=== PATIENT | male | born 1960 | race Caucasian/White ===

== ENCOUNTER 2017-10-06 19:57 | Inpatient (IN) ==
[2017-10-06] MEDS ORDERED: ACETAMINOPHEN 500 MG TABLET PO STA (21:26)
[2017-10-06] MEDS ORDERED: PIPERACILLIN/TAZOBACTAM 3,375 MG in SODIUM CHLORIDE 0.9% 100 ML IV STA (21:26)
[2017-10-06] MEDS ORDERED: SODIUM CHLORIDE 0.9% 1,000 ML IV STA (21:26)
[2017-10-06 21:39] LABS: Basophils % 0.3 % (0.0-0.8); Eosinophils % 0.4 % (0.00-10.9); Hematocrit 51.2 VOL% (42.0-52.0); Immature Granulocytes % 0.4 %; Immature Granulocytes Absolute 0.04 #; Lymphocytes # 0.5 10*3/uL (1.4-4.0); Lymphocytes % 4.3 % (21.2-54.2); Mean Corpuscular HGB Conc 37.7 GM/DL (32-36); Mean Corpuscular Hemoglobin 33 PG (27-34); Mean Corpuscular Volume 87.5 FL (87-102); Mean Platelet Volume 12.7 FL (9.6-12.0); Monocytes # 0.5 10*3/uL (0.11-0.8); Monocytes % 4.9 % (1.7-12.7); Neutrophils # 9.4 10*3/uL (1.4-7.4); Neutrophils % 89.7 % (38.7-73.9); Platelet Count 95 T/CUMM (130-400); Red Blood Count 5.85 MC/CUMM (3.8-5.5); Red Cell Distribution Width 12.8 % (9.3-17.3); White Blood Count 10.5 T/CUMM (4-12)
[2017-10-06 21:40] LABS: Hemoglobin 19.3 GM/DL (14.0-18.0)
[2017-10-06 21:42] LABS: INR 1.1; PT Patient Result 11.7 SECS
[2017-10-06] MEDS ORDERED: PIPERACILLIN/TAZOBACTAM 3,375 MG VIAL IV ONE (21:54)
[2017-10-06] MEDS ORDERED: ACETAMINOPHEN 500 MG TABLET ONE (21:54)
[2017-10-06 22:00] LABS: Albumin 4.1 G/DL (3.4-5.0); Calcium 9.5 MG/DL (8.5-10.1); Lymphocytes 1 % (20-55); Osmolality,Calculated 261.5 MOS/KG (273-304); Platelet Estimate Decreased; Potassium 3.4 MMOL/L (3.5-5.1); Segmented Neutrophils 92 % (50-85); Total Cells Counted 100
[2017-10-06 22:06] LABS: Lactic Acid 1.1 MMOL/L (0.4-2.0)
[2017-10-06 22:35] LABS: Sedimentation Rate-Westergren 2 MM/HR (0-20)
[2017-10-06] MEDS ORDERED: ALBUTEROL/IPRATROPIUM 3 ML NEB RESP TX STA (22:43)
[2017-10-06 22:52] LABS: Apearance,Urine Slightly Hazy (Clear); Bacteria,Urine Occasional /HPF (Few); Bilirubin,Urine Negative (Negative); Blood, Urine Negative (Negative); Glucose,Urine (UA) Negative (Negative); Hyaline Casts,Urine 1 /LPF (0-3); Ketones,Urine 5 mg/dL (Negative); Mucus,Urine Occasional /LPF (Occasional); Nitrite,Urine Positive (Negative); Protein,Urine Negative; RBC,Urine 3 /HPF (0-4); Squamous Epithelial Cell,Urine Occasional /HPF (0-10); Urine Color Yellow (Yellow); Urine Specific Gravity 1.009 (1.001-1.035); Urine Urobilinogen < 2.0 EU/DL (0.2-1.0); WBC,Urine 15 /HPF (0-6)
[2017-10-06] MEDS ORDERED: ONDANSETRON 4 MG/2 ML VIAL IV PRN (23:08)
[2017-10-06] MEDS ORDERED: ACETAMINOPHEN 325 MG TABLET PO PRN (23:08)
[2017-10-06] MEDS ORDERED: guaiFENesin/DM ER 600-30 MG TABLET PO PRN (23:08)
[2017-10-06] MEDS ORDERED: ALBUTEROL/IPRATROPIUM 3 ML NEB RESP TX PRN (23:12)
[2017-10-07] MEDS: LEVOFLOXACIN INJ 750 MG in PREMIX 1 EACH IV SCH ×2 (01:47→23:29)
[2017-10-07] MEDS: SODIUM CHLORIDE 0.9% 1,000 ML IV SCH ×3 (01:48→21:39)
[2017-10-07] MEDS: OXYBUTYNIN XL 10 MG TABLET PO SCH ×5 (01:51→23:03)
[2017-10-07] MEDS: ACETAMINOPHEN 500 MG TABLET PO PRN (06:58)
[2017-10-07 07:13] LABS: Basophils % 0.2 % (0.0-0.8); Hematocrit 45.6 VOL% (42.0-52.0); Immature Granulocytes % 0.7 %; Immature Granulocytes Absolute 0.12 #; Lymphocytes # 0.5 10*3/uL (1.4-4.0); Lymphocytes % 2.6 % (21.2-54.2); Mean Corpuscular HGB Conc 37.7 GM/DL (32-36); Mean Corpuscular Hemoglobin 33 PG (27-34); Mean Corpuscular Volume 88.4 FL (87-102); Mean Platelet Volume 12.6 FL (9.6-12.0); Monocytes # 0.9 10*3/uL (0.11-0.8); Monocytes % 5.2 % (1.7-12.7); Neutrophils # 15.5 10*3/uL (1.4-7.4); Neutrophils % 91.3 % (38.7-73.9); Red Blood Count 5.16 MC/CUMM (3.8-5.5)
[2017-10-07 07:14] LABS: Hemoglobin 17.2 GM/DL (14.0-18.0)
[2017-10-07 07:15] LABS: Calcium 8.7 MG/DL (8.5-10.1); Osmolality,Calculated 262.5 MOS/KG (273-304); Platelet Count 78 T/CUMM (130-400)
[2017-10-07 07:20] LABS: Band Neutrophils 9 % (0-10); Hypochromasia Slight; Lymphocytes 4 % (20-55); Platelet Estimate Decreased; Segmented Neutrophils 82 % (50-85); Total Cells Counted 100
[2017-10-07] MEDS: PANTOPRAZOLE 40 MG TABLET PO SCH (08:47)
[2017-10-07] MEDS: ASCORBIC ACID 500 MG TABLET PO SCH (08:47)
[2017-10-07] MEDS: BACLOFEN 20 MG TABLET PO SCH ×4 (08:47→22:42)
[2017-10-07] MEDS: GABAPENTIN 400 MG CAPSULE PO SCH ×4 (08:47→21:28)
[2017-10-07] MEDS: DOCUSATE SODIUM 100 MG CAPSULE PO PRN (08:48)
[2017-10-07] MEDS: DIAZEPAM 5 MG TABLET PO SCH ×2 (08:48→21:28)
[2017-10-07] MEDS: ENOXAPARIN 40 MG/0.4 ML SYRINGE SUBCUT SCH (08:48)
[2017-10-08 05:00] LABS: Calcium 8.7 MG/DL (8.5-10.1); Osmolality,Calculated 271.7 MOS/KG (273-304); Potassium 3.2 MMOL/L (3.5-5.1)
[2017-10-08] MEDS: SODIUM CHLORIDE 0.9% 1,000 ML IV SCH ×3 (05:51→21:56)
[2017-10-08] MEDS: OXYBUTYNIN XL 10 MG TABLET PO SCH ×3 (05:51→18:12)
[2017-10-08 06:40] LABS: Basophils % 0.2 % (0.0-0.8); Eosinophils # 0.1 10*3/uL (0.0-0.87); Hematocrit 43.1 VOL% (42.0-52.0); Hemoglobin 15.7 GM/DL (14.0-18.0); Immature Granulocytes % 0.4 %; Immature Granulocytes Absolute 0.04 #; Lymphocytes # 0.7 10*3/uL (1.4-4.0); Lymphocytes % 6.6 % (21.2-54.2); Mean Corpuscular HGB Conc 36.4 GM/DL (32-36); Mean Corpuscular Hemoglobin 33 PG (27-34); Mean Corpuscular Volume 90.4 FL (87-102); Mean Platelet Volume 12.1 FL (9.6-12.0); Monocytes # 0.5 10*3/uL (0.11-0.8); Monocytes % 5.1 % (1.7-12.7); Neutrophils # 8.7 10*3/uL (1.4-7.4); Neutrophils % 86.7 % (38.7-73.9); Platelet Count 78 T/CUMM (130-400); Red Blood Count 4.77 MC/CUMM (3.8-5.5); Red Cell Distribution Width 13.4 % (9.3-17.3)
[2017-10-08] MEDS ORDERED: BISACODYL 5 MG TABLET PO ONE (08:19)
[2017-10-08] MEDS ORDERED: POTASSIUM CHLORIDE 20 MEQ TABLET PO ONE (08:19)
[2017-10-08 08:27] LABS: Hypochromasia 1+
[2017-10-08] MEDS: BACLOFEN 20 MG TABLET PO SCH ×5 (09:34→21:56)
[2017-10-08] MEDS: ASCORBIC ACID 500 MG TABLET PO SCH (09:34)
[2017-10-08] MEDS: DOCUSATE SODIUM 100 MG CAPSULE PO PRN (09:34)
[2017-10-08] MEDS: PANTOPRAZOLE 40 MG TABLET PO SCH (09:34)
[2017-10-08] MEDS: DIAZEPAM 5 MG TABLET PO SCH ×3 (09:34→21:56)
[2017-10-08] MEDS: GABAPENTIN 400 MG CAPSULE PO SCH ×4 (09:34→21:56)
[2017-10-08] MEDS: ENOXAPARIN 40 MG/0.4 ML SYRINGE SUBCUT SCH ×2 (09:35→09:40)
[2017-10-08] MEDS ORDERED: SODIUM PHOSPHATE ENEMA 133 ML BOTTLE RECTAL ONE (14:00)
[2017-10-08] MEDS: DESITIN 4OZ/NYSTATIN 15 GRAM MIXTURE PASTE TOP SCH (21:56)
[2017-10-08] MEDS: LEVOFLOXACIN INJ 750 MG in PREMIX 1 EACH IV SCH (22:37)
[2017-10-09] MEDS: OXYBUTYNIN XL 10 MG TABLET PO SCH ×4 (00:51→17:48)
[2017-10-09] MEDS ORDERED: SODIUM PHOSPHATE ENEMA 133 ML BOTTLE RECTAL ONE (01:30)
[2017-10-09 05:57] LABS: Basophils % 0.2 % (0.0-0.8); Eosinophils # 0.3 10*3/uL (0.0-0.87); Eosinophils % 3.5 % (0.00-10.9); Hematocrit 43.6 VOL% (42.0-52.0); Hemoglobin 15.8 GM/DL (14.0-18.0); Immature Granulocytes % 0.2 %; Immature Granulocytes Absolute 0.02 #; Lymphocytes # 0.6 10*3/uL (1.4-4.0); Mean Corpuscular HGB Conc 36.2 GM/DL (32-36); Mean Corpuscular Hemoglobin 32 PG (27-34); Mean Corpuscular Volume 89.3 FL (87-102); Monocytes # 0.6 10*3/uL (0.11-0.8); Monocytes % 6.5 % (1.7-12.7); Neutrophils % 82.6 % (38.7-73.9); Red Blood Count 4.88 MC/CUMM (3.8-5.5); Red Cell Distribution Width 13.2 % (9.3-17.3); White Blood Count 8.5 T/CUMM (4-12)
[2017-10-09 05:58] LABS: Platelet Count 82 T/CUMM (130-400)
[2017-10-09 06:19] LABS: Calcium 8.6 MG/DL (8.5-10.1); Osmolality,Calculated 278.3 MOS/KG (273-304); Potassium 3.2 MMOL/L (3.5-5.1)
[2017-10-09] MEDS: SODIUM CHLORIDE 0.9% 1,000 ML IV SCH ×3 (06:26→20:16)
[2017-10-09 07:17] LABS: Platelet Estimate Decreased
[2017-10-09] MEDS: BACLOFEN 20 MG TABLET PO SCH ×5 (09:14→21:29)
[2017-10-09] MEDS: ENOXAPARIN 40 MG/0.4 ML SYRINGE SUBCUT SCH (09:17)
[2017-10-09] MEDS: ASCORBIC ACID 500 MG TABLET PO SCH (09:17)
[2017-10-09] MEDS: PANTOPRAZOLE 40 MG TABLET PO SCH (09:17)
[2017-10-09] MEDS: GABAPENTIN 400 MG CAPSULE PO SCH ×5 (09:19→22:49)
[2017-10-09] MEDS: DIAZEPAM 5 MG TABLET PO SCH ×3 (09:19→21:29)
[2017-10-09] MEDS: DESITIN 4OZ/NYSTATIN 15 GRAM MIXTURE PASTE TOP SCH ×2 (09:20→22:49)
[2017-10-09] MEDS ORDERED: POTASSIUM CHLORIDE 20 MEQ TABLET PO ONE (14:25)
[2017-10-09] MEDS ORDERED: PHENYLEPHRINE 0.25% SUPP RECTAL ONE (16:17)
[2017-10-09] MEDS: ACETAMINOPHEN 500 MG TABLET PO PRN (21:29)
[2017-10-09] MEDS: LEVOFLOXACIN INJ 750 MG in PREMIX 1 EACH IV SCH (22:49)
[2017-10-10] MEDS: OXYBUTYNIN XL 10 MG TABLET PO SCH ×3 (00:17→14:19)
[2017-10-10] MEDS: SODIUM CHLORIDE 0.9% 1,000 ML IV SCH (01:30)
[2017-10-10 07:25] LABS: Calcium 8.7 MG/DL (8.5-10.1); Osmolality,Calculated 281.1 MOS/KG (273-304); Potassium 3.8 MMOL/L (3.5-5.1)
[2017-10-10] MEDS: DIAZEPAM 5 MG TABLET PO SCH (08:21)
[2017-10-10] MEDS: PANTOPRAZOLE 40 MG TABLET PO SCH (08:21)
[2017-10-10] MEDS: ASCORBIC ACID 500 MG TABLET PO SCH (08:21)
[2017-10-10] MEDS: DESITIN 4OZ/NYSTATIN 15 GRAM MIXTURE PASTE TOP SCH (08:21)
[2017-10-10] MEDS: BACLOFEN 20 MG TABLET PO SCH ×2 (08:21→14:19)
[2017-10-10] MEDS: ENOXAPARIN 40 MG/0.4 ML SYRINGE SUBCUT SCH (08:23)
[2017-10-10] MEDS: GABAPENTIN 400 MG CAPSULE PO SCH (11:18)
[2017-10-10 11:58] VITALS: BP 156/86
== END 2017-10-10 14:01 | disposition home health service (06) | DRG 194 ==
LOC: EDUNIT# → EDBD → N.ED 19:57 → N.EDINP 23:08 → N.5E 23:33
PROVIDERS: ADMIT Internal Medicine Geriatric Medicine; ATTEND Internal Medicine Geriatric Medicine

== ENCOUNTER 2017-10-13 18:22 | Inpatient (IN) ==
[2017-10-13 19:35] LABS: VBG Base Excess 5.2 MEQ/L (0-4); VBG HCO3 29.1 MEQ/L (24-28); VBG PH 7.451
[2017-10-13 19:59] LABS: Albumin 3.5 G/DL (3.4-5.0); Bilirubin,Total 1.4 MG/DL (0.2-1.0); Calcium 8.8 MG/DL (8.5-10.1); Osmolality,Calculated 262.5 MOS/KG (273-304); Potassium 3.6 MMOL/L (3.5-5.1); Total Protein 6.6 G/DL (6.4-8.3)
[2017-10-13 20:03] LABS: Apearance,Urine CLEAR (Clear); Bacteria,Urine Occasional /HPF (Few); Bilirubin,Urine Negative (Negative); Blood, Urine Small mg/dL (Negative); Glucose,Urine (UA) Negative (Negative); Ketones,Urine Negative (Negative); Nitrite,Urine Positive (Negative); Protein,Urine Negative; RBC,Urine <1 /HPF (0-4); Squamous Epithelial Cell,Urine Occasional /HPF (0-10); Urine Color Straw (Yellow); Urine Specific Gravity 1.003 (1.001-1.035); Urine Urobilinogen < 2.0 EU/DL (0.2-1.0); WBC,Urine 1 /HPF (0-6)
[2017-10-13 20:25] LABS: Basophils # 0.1 10*3/uL (0.0-0.2); Basophils % 0.3 % (0.0-0.8); Eosinophils % 0.1 % (0.00-10.9); Hematocrit 46.6 VOL% (42.0-52.0); Hemoglobin 16.9 GM/DL (14.0-18.0); Immature Granulocytes % 0.3 %; Immature Granulocytes Absolute 0.05 #; Lymphocytes # 0.8 10*3/uL (1.4-4.0); Lymphocytes % 5.1 % (21.2-54.2); Mean Corpuscular HGB Conc 36.3 GM/DL (32-36); Mean Corpuscular Hemoglobin 32 PG (27-34); Mean Corpuscular Volume 88.8 FL (87-102); Mean Platelet Volume 12.2 FL (9.6-12.0); Monocytes # 1.2 10*3/uL (0.11-0.8); Monocytes % 7.9 % (1.7-12.7); Neutrophils # 12.9 10*3/uL (1.4-7.4); Neutrophils % 86.3 % (38.7-73.9); Platelet Count 106 T/CUMM (130-400); Red Blood Count 5.25 MC/CUMM (3.8-5.5); Red Cell Distribution Width 13.1 % (9.3-17.3)
[2017-10-13] MEDS ORDERED: ONDANSETRON 4 MG/2 ML VIAL ONE (21:49)
[2017-10-13] MEDS ORDERED: ONDANSETRON 4 MG/2 ML VIAL IV STA ×2 (21:49→21:52)
[2017-10-13] MEDS ORDERED: ONDANSETRON 4 MG/2 ML VIAL IV PRN (22:52)
[2017-10-13] MEDS ORDERED: cefTRIAXone 1,000 MG in SYRINGE 1 EACH IV SCH (23:00)
[2017-10-13] MEDS ORDERED: AZITHROMYCIN INJ 500 MG in SODIUM CHLORIDE 0.9% 250 ML IV SCH (23:45)
[2017-10-14] MEDS: ENOXAPARIN 40 MG/0.4 ML SYRINGE SUBCUT SCH ×2 (01:14→22:04)
[2017-10-14] MEDS: guaiFENesin/DM ER 600-30 MG TABLET PO SCH ×2 (01:16→09:16)
[2017-10-14] MEDS: METHENAMINE HIPPURATE 1 GM TABLET PO SCH ×4 (01:16→21:55)
[2017-10-14] MEDS: DIAZEPAM 5 MG TABLET PO SCH ×4 (01:29→23:45)
[2017-10-14] MEDS: DOCUSATE SODIUM 100 MG CAPSULE PO SCH ×3 (01:29→21:56)
[2017-10-14] MEDS: OXYBUTYNIN XL 10 MG TABLET PO SCH ×5 (01:36→23:45)
[2017-10-14] MEDS: SODIUM PHOSPHATE ENEMA 133 ML BOTTLE RECTAL PRN (02:13)
[2017-10-14] MEDS: ACETAMINOPHEN 325 MG TABLET PO PRN (06:11)
[2017-10-14 06:21] LABS: Basophils # 0.1 10*3/uL (0.0-0.2); Basophils % 0.4 % (0.0-0.8); Hematocrit 45.5 VOL% (42.0-52.0); Hemoglobin 16.7 GM/DL (14.0-18.0); Immature Granulocytes % 0.3 %; Immature Granulocytes Absolute 0.05 #; Lymphocytes # 0.5 10*3/uL (1.4-4.0); Mean Corpuscular HGB Conc 36.7 GM/DL (32-36); Mean Corpuscular Hemoglobin 32 PG (27-34); Mean Corpuscular Volume 87.8 FL (87-102); Mean Platelet Volume 11.5 FL (9.6-12.0); Monocytes # 0.8 10*3/uL (0.11-0.8); Neutrophils # 14.1 10*3/uL (1.4-7.4); Neutrophils % 91.3 % (38.7-73.9); Platelet Count 105 T/CUMM (130-400); Red Blood Count 5.18 MC/CUMM (3.8-5.5); White Blood Count 15.4 T/CUMM (4-12)
[2017-10-14 06:44] LABS: Band Neutrophils 30 % (0-10); Segmented Neutrophils 64 % (50-85); Total Cells Counted 100
[2017-10-14 06:58] LABS: Calcium 8.8 MG/DL (8.5-10.1); Osmolality,Calculated 261.7 MOS/KG (273-304); Potassium 3.4 MMOL/L (3.5-5.1)
[2017-10-14] MEDS: PANTOPRAZOLE 40 MG TABLET PO SCH (09:16)
[2017-10-14] MEDS: ASCORBIC ACID 500 MG TABLET PO SCH (09:16)
[2017-10-14] MEDS ORDERED: ALBUTEROL/IPRATROPIUM 3 ML NEB RESP TX SCH (11:00)
[2017-10-14] MEDS ORDERED: CEFEPIME 2,000 MG in SYRINGE 1 EACH IV SCH (11:00)
[2017-10-14] MEDS ORDERED: AMINOPHYLLINE 250 MG in SODIUM CHLORIDE 0.9% 100 ML IV ONE (12:30)
[2017-10-14] MEDS: ALBUTEROL/IPRATROPIUM 3 ML NEB RESP TX SCH ×2 (13:55→19:46)
[2017-10-14] MEDS: DORNASE ALFA 2.5 MG/2.5 ML VIAL RESP TX SCH ×2 (14:01→20:00)
[2017-10-14] MEDS: MONTELUKAST 10 MG TABLET PO SCH (14:31)
[2017-10-14] MEDS: MEROPENEM 1,000 MG in SYRINGE 1 EACH IV SCH ×2 (14:32→22:05)
[2017-10-14] MEDS ORDERED: POTASSIUM CHLORIDE 20 MEQ TABLET PO ONE (15:42)
[2017-10-14] MEDS: FUROSEMIDE 20 MG/2 ML VIAL IV SCH (16:58)
[2017-10-14] MEDS ORDERED: cefTAZidime 1,000 MG in SYRINGE 1 EACH IV SCH (17:00)
[2017-10-14] MEDS: GABAPENTIN 400 MG CAPSULE PO SCH ×2 (17:26→21:53)
[2017-10-14] MEDS: BACLOFEN 20 MG TABLET PO SCH ×2 (17:26→21:56)
[2017-10-14] MEDS ORDERED: FLUCONAZOLE 150 MG TABLET PO ONE (18:00)
[2017-10-14] MEDS: NYSTATIN 500,000 UNIT/5 ML UDCUP SWISH/SWAL SCH (21:58)
[2017-10-14] MEDS: VANCOMYCIN INJ 1,000 MG in SODIUM CHLORIDE 0.9% 250 ML IV SCH (22:11)
[2017-10-14] MEDS ORDERED: BACLOFEN 20 MG TABLET PO SCH (23:00)
[2017-10-14] MEDS: AMINOPHYLLINE 500 MG in SODIUM CHLORIDE 0.9% 480 ML IV SCH (23:40)
[2017-10-15] MEDS: ACETAMINOPHEN 325 MG TABLET PO PRN (00:05)
[2017-10-15] MEDS: ALBUTEROL/IPRATROPIUM 3 ML NEB RESP TX SCH ×4 (02:02→19:17)
[2017-10-15] MEDS: OXYBUTYNIN XL 10 MG TABLET PO SCH ×3 (06:13→17:35)
[2017-10-15] MEDS: MEROPENEM 1,000 MG in SYRINGE 1 EACH IV SCH ×3 (06:15→22:10)
[2017-10-15] MEDS: DORNASE ALFA 2.5 MG/2.5 ML VIAL RESP TX SCH ×2 (07:20→19:17)
[2017-10-15] MEDS: ASCORBIC ACID 500 MG TABLET PO SCH (10:04)
[2017-10-15] MEDS: DOCUSATE SODIUM 100 MG CAPSULE PO SCH ×2 (10:04→20:54)
[2017-10-15] MEDS: PANTOPRAZOLE 40 MG TABLET PO SCH (10:04)
[2017-10-15] MEDS: POTASSIUM CHLORIDE 20 MEQ TABLET PO SCH (10:04)
[2017-10-15] MEDS: GABAPENTIN 400 MG CAPSULE PO SCH ×4 (10:05→21:00)
[2017-10-15] MEDS: NYSTATIN 500,000 UNIT/5 ML UDCUP SWISH/SWAL SCH ×4 (10:05→20:55)
[2017-10-15] MEDS: BACLOFEN 20 MG TABLET PO SCH ×4 (10:06→20:54)
[2017-10-15] MEDS: METHENAMINE HIPPURATE 1 GM TABLET PO SCH ×2 (10:07→20:54)
[2017-10-15] MEDS: VANCOMYCIN INJ 1,000 MG in SODIUM CHLORIDE 0.9% 250 ML IV SCH ×2 (10:07→18:02)
[2017-10-15] MEDS: MONTELUKAST 10 MG TABLET PO SCH (10:07)
[2017-10-15] MEDS: DIAZEPAM 5 MG TABLET PO SCH ×2 (10:07→20:59)
[2017-10-15] MEDS: FUROSEMIDE 20 MG/2 ML VIAL IV SCH ×2 (10:08→16:12)
[2017-10-15] MEDS: ENOXAPARIN 40 MG/0.4 ML SYRINGE SUBCUT SCH (21:00)
[2017-10-15] MEDS ORDERED: AZITHROMYCIN 250 MG TABLET PO SCH (21:00)
[2017-10-16] MEDS: ALBUTEROL/IPRATROPIUM 3 ML NEB RESP TX SCH ×4 (00:32→20:57)
[2017-10-16] MEDS: ALBUTEROL/IPRATROPIUM 3 ML NEB RESP TX PRN ×2 (03:57→16:46)
[2017-10-16] MEDS: MEROPENEM 1,000 MG in SYRINGE 1 EACH IV SCH ×3 (06:15→20:58)
[2017-10-16] MEDS: OXYBUTYNIN XL 10 MG TABLET PO SCH ×4 (06:32→17:17)
[2017-10-16] MEDS: VANCOMYCIN INJ 1,000 MG in SODIUM CHLORIDE 0.9% 250 ML IV SCH ×2 (06:32→18:12)
[2017-10-16 06:51] LABS: Basophils % 0.2 % (0.0-0.8); Eosinophils % 0.3 % (0.00-10.9); Hematocrit 42.3 VOL% (42.0-52.0); Hemoglobin 15.2 GM/DL (14.0-18.0); Immature Granulocytes % 0.4 %; Immature Granulocytes Absolute 0.04 #; Lymphocytes # 0.7 10*3/uL (1.4-4.0); Lymphocytes % 6.8 % (21.2-54.2); Mean Corpuscular HGB Conc 35.9 GM/DL (32-36); Mean Corpuscular Hemoglobin 32 PG (27-34); Mean Corpuscular Volume 88.3 FL (87-102); Monocytes # 0.5 10*3/uL (0.11-0.8); Monocytes % 5.4 % (1.7-12.7); Neutrophils # 8.6 10*3/uL (1.4-7.4); Neutrophils % 86.9 % (38.7-73.9); Platelet Count 137 T/CUMM (130-400); Red Blood Count 4.79 MC/CUMM (3.8-5.5); Red Cell Distribution Width 12.8 % (9.3-17.3); White Blood Count 9.9 T/CUMM (4-12)
[2017-10-16 07:28] LABS: Calcium 8.6 MG/DL (8.5-10.1); Osmolality,Calculated 269.1 MOS/KG (273-304); Potassium 3.2 MMOL/L (3.5-5.1)
[2017-10-16] MEDS: DORNASE ALFA 2.5 MG/2.5 ML VIAL RESP TX SCH ×2 (07:53→20:58)
[2017-10-16] MEDS ORDERED: FUROSEMIDE 20 MG/2 ML VIAL IV SCH (09:00)
[2017-10-16] MEDS: GABAPENTIN 400 MG CAPSULE PO SCH ×4 (10:41→20:47)
[2017-10-16] MEDS: DOCUSATE SODIUM 100 MG CAPSULE PO SCH ×2 (10:41→20:47)
[2017-10-16] MEDS: ASCORBIC ACID 500 MG TABLET PO SCH (10:41)
[2017-10-16] MEDS: PANTOPRAZOLE 40 MG TABLET PO SCH (10:41)
[2017-10-16] MEDS: METHENAMINE HIPPURATE 1 GM TABLET PO SCH ×2 (10:41→20:47)
[2017-10-16] MEDS: POTASSIUM CHLORIDE 20 MEQ TABLET PO SCH (10:42)
[2017-10-16] MEDS: AMINOPHYLLINE 500 MG in SODIUM CHLORIDE 0.9% 480 ML IV SCH ×2 (10:42→17:25)
[2017-10-16] MEDS: DIAZEPAM 5 MG TABLET PO SCH ×2 (10:42→20:47)
[2017-10-16] MEDS: NYSTATIN 500,000 UNIT/5 ML UDCUP SWISH/SWAL SCH ×4 (10:42→20:47)
[2017-10-16] MEDS: MONTELUKAST 10 MG TABLET PO SCH (10:42)
[2017-10-16] MEDS: BACLOFEN 20 MG TABLET PO SCH ×4 (10:42→20:47)
[2017-10-16] MEDS ORDERED: BISACODYL 5 MG TABLET PO ONE (12:08)
[2017-10-16] MEDS ORDERED: POTASSIUM CHLORIDE 20 MEQ TABLET PO ONE (12:11)
[2017-10-16] MEDS: methylPREDNISolone SOD SUC 40 MG/1 ML VIAL IV SCH ×2 (12:27→20:55)
[2017-10-16 13:16] LABS: Procalcitonin, S 0.28 ng/mL (<=0.15)
[2017-10-17] MEDS: OXYBUTYNIN XL 10 MG TABLET PO SCH ×4 (00:28→17:34)
[2017-10-17] MEDS: ENOXAPARIN 40 MG/0.4 ML SYRINGE SUBCUT SCH ×3 (00:29→22:08)
[2017-10-17] MEDS: ALBUTEROL/IPRATROPIUM 3 ML NEB RESP TX SCH ×4 (01:05→19:59)
[2017-10-17] MEDS: SODIUM PHOSPHATE ENEMA 133 ML BOTTLE RECTAL PRN (01:17)
[2017-10-17] MEDS ORDERED: ALBUTEROL/IPRATROPIUM 3 ML NEB RESP TX ONE (03:15)
[2017-10-17 05:18] LABS: Calcium 8.7 MG/DL (8.5-10.1); Osmolality,Calculated 270.1 MOS/KG (273-304); Potassium 3.8 MMOL/L (3.5-5.1)
[2017-10-17 06:15] LABS: Basophils % 0.3 % (0.0-0.8); Hematocrit 41.4 VOL% (42.0-52.0); Hemoglobin 14.8 GM/DL (14.0-18.0); Immature Granulocytes % 1.2 %; Immature Granulocytes Absolute 0.09 #; Lymphocytes # 0.3 10*3/uL (1.4-4.0); Lymphocytes % 4.1 % (21.2-54.2); Mean Corpuscular HGB Conc 35.7 GM/DL (32-36); Mean Corpuscular Hemoglobin 32 PG (27-34); Mean Platelet Volume 11.6 FL (9.6-12.0); Monocytes # 0.1 10*3/uL (0.11-0.8); Monocytes % 1.8 % (1.7-12.7); Neutrophils # 6.8 10*3/uL (1.4-7.4); Neutrophils % 92.6 % (38.7-73.9); Platelet Count 139 T/CUMM (130-400); Red Cell Distribution Width 12.9 % (9.3-17.3); White Blood Count 7.3 T/CUMM (4-12)
[2017-10-17] MEDS: ACETAMINOPHEN 325 MG TABLET PO PRN ×2 (06:20→16:20)
[2017-10-17] MEDS: MEROPENEM 1,000 MG in SYRINGE 1 EACH IV SCH ×3 (06:30→21:39)
[2017-10-17] MEDS: methylPREDNISolone SOD SUC 40 MG/1 ML VIAL IV SCH ×3 (06:35→21:39)
[2017-10-17] MEDS: DORNASE ALFA 2.5 MG/2.5 ML VIAL RESP TX SCH ×2 (07:10→19:59)
[2017-10-17 07:37] LABS: Band Neutrophils 2 % (0-10); Hypochromasia 2+; Lymphocytes 6 % (20-55); Microcytosis 1+; Platelet Estimate Decreased; Segmented Neutrophils 89 % (50-85); Total Cells Counted 100
[2017-10-17] MEDS: ASCORBIC ACID 500 MG TABLET PO SCH (09:55)
[2017-10-17] MEDS: BACLOFEN 20 MG TABLET PO SCH ×4 (09:55→21:40)
[2017-10-17] MEDS: NYSTATIN 500,000 UNIT/5 ML UDCUP SWISH/SWAL SCH ×4 (09:55→21:40)
[2017-10-17] MEDS: DOCUSATE SODIUM 100 MG CAPSULE PO SCH ×2 (09:55→21:40)
[2017-10-17] MEDS: GABAPENTIN 400 MG CAPSULE PO SCH ×4 (09:56→21:40)
[2017-10-17] MEDS: MONTELUKAST 10 MG TABLET PO SCH (09:56)
[2017-10-17] MEDS: DIAZEPAM 5 MG TABLET PO SCH ×2 (09:57→21:40)
[2017-10-17] MEDS: METHENAMINE HIPPURATE 1 GM TABLET PO SCH ×2 (09:57→21:40)
[2017-10-17] MEDS: POTASSIUM CHLORIDE 20 MEQ TABLET PO SCH (09:57)
[2017-10-17] MEDS: PANTOPRAZOLE 40 MG TABLET PO SCH (09:57)
[2017-10-17] MEDS: VANCOMYCIN INJ 1,000 MG in SODIUM CHLORIDE 0.9% 250 ML IV SCH (11:17)
[2017-10-17] MEDS: VANCOMYCIN INJ 1,000 MG in SODIUM CHLORIDE 0.45% 250 ML IV SCH (21:39)
[2017-10-17] MEDS: AMINOPHYLLINE 500 MG in SODIUM CHLORIDE 0.9% 480 ML IV SCH (21:41)
[2017-10-18] MEDS: DIAZEPAM 5 MG TABLET PO SCH ×3 (00:45→21:20)
[2017-10-18] MEDS: ALBUTEROL/IPRATROPIUM 3 ML NEB RESP TX SCH ×4 (01:04→20:25)
[2017-10-18] MEDS: AMINOPHYLLINE 500 MG in SODIUM CHLORIDE 0.9% 480 ML IV SCH ×2 (01:34→08:52)
[2017-10-18] MEDS: OXYBUTYNIN XL 10 MG TABLET PO SCH ×4 (01:36→17:34)
[2017-10-18] MEDS: VANCOMYCIN INJ 1,000 MG in SODIUM CHLORIDE 0.45% 250 ML IV SCH ×2 (04:30→12:13)
[2017-10-18] MEDS: methylPREDNISolone SOD SUC 40 MG/1 ML VIAL IV SCH ×3 (04:32→21:20)
[2017-10-18] MEDS: MEROPENEM 1,000 MG in SYRINGE 1 EACH IV SCH ×3 (04:35→21:38)
[2017-10-18 07:03] LABS: Basophils % 0.3 % (0.0-0.8); Hematocrit 42.1 VOL% (42.0-52.0); Hemoglobin 14.9 GM/DL (14.0-18.0); Immature Granulocytes % 1.8 %; Immature Granulocytes Absolute 0.21 #; Lymphocytes # 0.6 10*3/uL (1.4-4.0); Lymphocytes % 5.4 % (21.2-54.2); Mean Corpuscular HGB Conc 35.4 GM/DL (32-36); Mean Corpuscular Hemoglobin 32 PG (27-34); Mean Corpuscular Volume 90.5 FL (87-102); Mean Platelet Volume 11.5 FL (9.6-12.0); Monocytes # 0.7 10*3/uL (0.11-0.8); Monocytes % 5.8 % (1.7-12.7); Neutrophils # 10.2 10*3/uL (1.4-7.4); Neutrophils % 86.7 % (38.7-73.9); Platelet Count 156 T/CUMM (130-400); Red Blood Count 4.65 MC/CUMM (3.8-5.5); Red Cell Distribution Width 12.8 % (9.3-17.3); White Blood Count 11.8 T/CUMM (4-12)
[2017-10-18 07:35] LABS: Calcium 8.8 MG/DL (8.5-10.1); Osmolality,Calculated 268.2 MOS/KG (273-304); Potassium 4.1 MMOL/L (3.5-5.1)
[2017-10-18] MEDS: DORNASE ALFA 2.5 MG/2.5 ML VIAL RESP TX SCH ×2 (07:46→20:25)
[2017-10-18 07:52] LABS: Albumin 3.1 G/DL (3.4-5.0); Bilirubin,Total 0.8 MG/DL (0.2-1.0); Calcium 8.9 MG/DL (8.5-10.1); Osmolality,Calculated 271.1 MOS/KG (273-304); Potassium 4.1 MMOL/L (3.5-5.1); Total Protein 6.1 G/DL (6.4-8.3)
[2017-10-18] MEDS: NYSTATIN 500,000 UNIT/5 ML UDCUP SWISH/SWAL SCH ×3 (08:53→17:34)
[2017-10-18] MEDS: PANTOPRAZOLE 40 MG TABLET PO SCH (08:54)
[2017-10-18] MEDS: DOCUSATE SODIUM 100 MG CAPSULE PO SCH ×2 (08:54→21:20)
[2017-10-18] MEDS: METHENAMINE HIPPURATE 1 GM TABLET PO SCH ×2 (08:54→21:19)
[2017-10-18] MEDS: GABAPENTIN 400 MG CAPSULE PO SCH ×4 (08:54→21:19)
[2017-10-18] MEDS: POTASSIUM CHLORIDE 20 MEQ TABLET PO SCH (08:54)
[2017-10-18] MEDS: MONTELUKAST 10 MG TABLET PO SCH (08:54)
[2017-10-18] MEDS: ASCORBIC ACID 500 MG TABLET PO SCH (08:54)
[2017-10-18] MEDS: BACLOFEN 20 MG TABLET PO SCH ×4 (08:55→21:19)
[2017-10-18] MEDS ORDERED: BISACODYL 5 MG TABLET PO PRN (11:55)
[2017-10-18] MEDS: THEOPHYLLINE ER 300 MG TABLET PO SCH (13:27)
[2017-10-18] MEDS: ENOXAPARIN 40 MG/0.4 ML SYRINGE SUBCUT SCH (21:22)
[2017-10-19] MEDS: VANCOMYCIN INJ 1,000 MG in SODIUM CHLORIDE 0.45% 250 ML IV SCH ×2 (00:42→11:38)
[2017-10-19] MEDS: NYSTATIN 500,000 UNIT/5 ML UDCUP SWISH/SWAL SCH ×2 (00:42→09:16)
[2017-10-19] MEDS: OXYBUTYNIN XL 10 MG TABLET PO SCH ×2 (00:43→07:38)
[2017-10-19] MEDS: SODIUM PHOSPHATE ENEMA 133 ML BOTTLE RECTAL PRN (01:23)
[2017-10-19] MEDS: ALBUTEROL/IPRATROPIUM 3 ML NEB RESP TX SCH ×2 (03:36→07:50)
[2017-10-19] MEDS: methylPREDNISolone SOD SUC 40 MG/1 ML VIAL IV SCH (05:03)
[2017-10-19] MEDS: MEROPENEM 1,000 MG in SYRINGE 1 EACH IV SCH (05:07)
[2017-10-19] MEDS: DORNASE ALFA 2.5 MG/2.5 ML VIAL RESP TX SCH (07:55)
[2017-10-19] MEDS: THEOPHYLLINE ER 300 MG TABLET PO SCH (09:16)
[2017-10-19] MEDS: METHENAMINE HIPPURATE 1 GM TABLET PO SCH (09:16)
[2017-10-19] MEDS: BACLOFEN 20 MG TABLET PO SCH (09:16)
[2017-10-19] MEDS: GABAPENTIN 400 MG CAPSULE PO SCH (09:17)
[2017-10-19] MEDS: POTASSIUM CHLORIDE 20 MEQ TABLET PO SCH (09:17)
[2017-10-19] MEDS: ASCORBIC ACID 500 MG TABLET PO SCH (09:17)
[2017-10-19] MEDS: DIAZEPAM 5 MG TABLET PO SCH (09:17)
[2017-10-19] MEDS: PANTOPRAZOLE 40 MG TABLET PO SCH (09:17)
[2017-10-19] MEDS: MONTELUKAST 10 MG TABLET PO SCH (09:17)
[2017-10-19 09:44] LABS: Calcium 9.4 MG/DL (8.5-10.1); Potassium 3.7 MMOL/L (3.5-5.1)
[2017-10-19] MEDS: DOCUSATE SODIUM 100 MG CAPSULE PO SCH (11:05)
[2017-10-19 11:49] VITALS: BP 157/94
== END 2017-10-19 12:46 | disposition home health service (06) | DRG 193 ==
LOC: EDUNIT# → EDBD → N.ED 18:22 → SUATTDRO 22:48 → N.EDINP 22:48 → N.2E 23:32
PROVIDERS: ADMIT Internal Medicine; ATTEND Internal Medicine

== ENCOUNTER 2018-08-20 15:45 | Inpatient (IN) ==
[2018-08-20 17:00] LABS: Apearance,Urine CLOUDY (Clear); Bacteria,Urine Moderate /HPF (Few); Bilirubin,Urine Negative (Negative); Blood, Urine Small mg/dL (Negative); Glucose,Urine (UA) Negative (Negative); Hyaline Casts,Urine 49 /LPF (0-3); Ketones,Urine Negative (Negative); Mucus,Urine Occasional /LPF (Occasional); Nitrite,Urine Negative (Negative); Protein,Urine >=500 MG/DL; RBC,Urine 7 /HPF (0-4); Squamous Epithelial Cell,Urine Occasional /HPF (0-10); Urine Color Amber (Yellow); Urine Specific Gravity 1.013 (1.001-1.035); WBC,Urine 35 /HPF (0-6)
[2018-08-20] MEDS ORDERED: ONDANSETRON 4 MG/2 ML VIAL ONE (17:05)
[2018-08-20 17:52] LABS: Basophils % 0.4 % (0.0-0.8); Eosinophils # 0.1 10*3/uL (0.0-0.87); Eosinophils % 1.1 % (0.00-10.9); Hematocrit 47.9 VOL% (42.0-52.0); Hemoglobin 16.8 GM/DL (14.0-18.0); Immature Granulocytes % 0.4 %; Immature Granulocytes Absolute 0.03 #; Lymphocytes # 0.6 10*3/uL (1.4-4.0); Lymphocytes % 7.1 % (21.2-54.2); Mean Corpuscular HGB Conc 35.1 GM/DL (32-36); Mean Corpuscular Hemoglobin 30 PG (27-34); Mean Corpuscular Volume 86.6 FL (87-102); Mean Platelet Volume 12.4 FL (9.6-12.0); Monocytes # 0.6 10*3/uL (0.11-0.8); Monocytes % 7.6 % (1.7-12.7); Neutrophils # 6.7 10*3/uL (1.4-7.4); Neutrophils % 83.4 % (38.7-73.9); Platelet Count 111 T/CUMM (130-400); Red Blood Count 5.53 MC/CUMM (3.8-5.5); Red Cell Distribution Width 13.2 % (9.3-17.3)
[2018-08-20] MEDS ORDERED: ONDANSETRON 4 MG/2 ML VIAL IV STA (18:04)
[2018-08-20 18:08] LABS: Albumin 3.8 G/DL (3.4-5.0); Bilirubin,Total 0.6 MG/DL (0.2-1.0); Calcium 8.8 MG/DL (8.5-10.1); Osmolality,Calculated 266.2 MOS/KG (273-304); Potassium 2.9 MMOL/L (3.5-5.1); Total Protein 7.3 G/DL (6.4-8.3)
[2018-08-20 18:10] LABS: Lactic Acid 0.8 MMOL/L (0.4-2.0)
[2018-08-20] MEDS: cefTAZidime 2,000 MG in SYRINGE 1 EACH IV SCH (18:58)
[2018-08-20] MEDS ORDERED: ACETAMINOPHEN 325 MG TABLET PO PRN (20:36)
[2018-08-20] MEDS: POTASSIUM CHLORIDE 20 MEQ TABLET PO SCH (20:36)
[2018-08-20] MEDS: METHENAMINE HIPPURATE 1 GM TABLET PO SCH (21:35)
[2018-08-20] MEDS: DIAZEPAM 5 MG TABLET PO SCH (21:36)
[2018-08-20] MEDS: ENOXAPARIN 40 MG/0.4 ML SYRINGE SUBCUT SCH (21:37)
[2018-08-20] MEDS: OXYBUTYNIN XL 10 MG TABLET PO SCH (21:37)
[2018-08-20] MEDS: BACLOFEN 10 MG TABLET PO SCH (21:38)
[2018-08-20] MEDS: GABAPENTIN 400 MG CAPSULE PO SCH (21:38)
[2018-08-20] MEDS: SODIUM CHLORIDE 0.9% 1,000 ML IV SCH (21:39)
[2018-08-20] MEDS: GENTAMICIN INJ 120 MG in PREMIX 1 EACH IV SCH (21:39)
[2018-08-20] MEDS: DOCUSATE SODIUM 100 MG CAPSULE PO SCH (21:39)
[2018-08-21] MEDS: POTASSIUM CHLORIDE 20 MEQ TABLET PO SCH ×3 (00:48→08:39)
[2018-08-21] MEDS: cefTAZidime 2,000 MG in SYRINGE 1 EACH IV SCH ×3 (04:14→17:59)
[2018-08-21] MEDS: ONDANSETRON 4 MG/2 ML VIAL IV PRN ×2 (05:37→14:30)
[2018-08-21 06:19] LABS: Basophils % 0.5 % (0.0-0.8); Eosinophils # 0.2 10*3/uL (0.0-0.87); Eosinophils % 3.4 % (0.00-10.9); Hematocrit 45.1 VOL% (42.0-52.0); Immature Granulocytes % 0.3 %; Immature Granulocytes Absolute 0.02 #; Lymphocytes # 0.5 10*3/uL (1.4-4.0); Lymphocytes % 8.5 % (21.2-54.2); Mean Corpuscular HGB Conc 35.5 GM/DL (32-36); Mean Corpuscular Hemoglobin 31 PG (27-34); Mean Corpuscular Volume 87.4 FL (87-102); Mean Platelet Volume 12.7 FL (9.6-12.0); Monocytes # 0.7 10*3/uL (0.11-0.8); Monocytes % 10.9 % (1.7-12.7); Neutrophils # 4.7 10*3/uL (1.4-7.4); Neutrophils % 76.4 % (38.7-73.9); Platelet Count 78 T/CUMM (130-400); Red Blood Count 5.16 MC/CUMM (3.8-5.5); Red Cell Distribution Width 13.4 % (9.3-17.3); White Blood Count 6.1 T/CUMM (4-12)
[2018-08-21] MEDS: SODIUM CHLORIDE 0.9% 1,000 ML IV SCH ×3 (06:21→23:43)
[2018-08-21 06:51] LABS: Calcium 8.2 MG/DL (8.5-10.1); Osmolality,Calculated 272.7 MOS/KG (273-304); Potassium 3.3 MMOL/L (3.5-5.1)
[2018-08-21 07:03] LABS: Risk Ratio 3.22
[2018-08-21 07:43] LABS: Eosinophils 5 % (0-10); Lymphocytes 15 % (20-55); Platelet Estimate Decreased; Segmented Neutrophils 78 % (50-85); Total Cells Counted 100
[2018-08-21] MEDS: ASCORBIC ACID 500 MG TABLET PO SCH (08:38)
[2018-08-21] MEDS: METHENAMINE HIPPURATE 1 GM TABLET PO SCH (08:38)
[2018-08-21] MEDS: DIAZEPAM 5 MG TABLET PO SCH (08:39)
[2018-08-21] MEDS: GABAPENTIN 400 MG CAPSULE PO SCH ×2 (08:39→22:03)
[2018-08-21] MEDS: PANTOPRAZOLE 40 MG TABLET PO SCH (08:39)
[2018-08-21] MEDS: DOCUSATE SODIUM 100 MG CAPSULE PO SCH ×2 (08:39→22:03)
[2018-08-21] MEDS: BACLOFEN 10 MG TABLET PO SCH ×3 (08:39→20:51)
[2018-08-21] MEDS: OXYBUTYNIN XL 10 MG TABLET PO SCH ×3 (08:39→20:51)
[2018-08-21] MEDS: GENTAMICIN INJ 120 MG in PREMIX 1 EACH IV SCH ×2 (08:40→20:44)
[2018-08-21] MEDS: SULFAMETHOX/TRIMETHOPRIM 800-160 MG TABLET PO SCH ×2 (12:12→20:51)
[2018-08-21] MEDS: chlordiazePOXIDE 10 MG CAPSULE PO SCH ×2 (14:29→20:51)
[2018-08-21] MEDS: tiZANidine 4 MG TABLET PO SCH ×2 (14:29→20:51)
[2018-08-21] MEDS: ENOXAPARIN 40 MG/0.4 ML SYRINGE SUBCUT SCH (20:50)
[2018-08-22] MEDS: cefTAZidime 2,000 MG in SYRINGE 1 EACH IV SCH ×3 (02:50→16:46)
[2018-08-22 04:18] LABS: Basophils % 0.4 % (0.0-0.8); Eosinophils # 0.2 10*3/uL (0.0-0.87); Eosinophils % 3.4 % (0.00-10.9); Hematocrit 43.8 VOL% (42.0-52.0); Hemoglobin 15.1 GM/DL (14.0-18.0); Immature Granulocytes % 0.3 %; Immature Granulocytes Absolute 0.02 #; Lymphocytes # 0.6 10*3/uL (1.4-4.0); Lymphocytes % 8.4 % (21.2-54.2); Mean Corpuscular HGB Conc 34.5 GM/DL (32-36); Mean Corpuscular Hemoglobin 31 PG (27-34); Mean Corpuscular Volume 88.7 FL (87-102); Mean Platelet Volume 12.4 FL (9.6-12.0); Monocytes # 0.8 10*3/uL (0.11-0.8); Monocytes % 11.2 % (1.7-12.7); Neutrophils # 5.2 10*3/uL (1.4-7.4); Neutrophils % 76.3 % (38.7-73.9); Platelet Count 88 T/CUMM (130-400); Red Blood Count 4.94 MC/CUMM (3.8-5.5); Red Cell Distribution Width 13.7 % (9.3-17.3); White Blood Count 6.8 T/CUMM (4-12)
[2018-08-22 04:34] LABS: Calcium 8.4 MG/DL (8.5-10.1); Osmolality,Calculated 275.5 MOS/KG (273-304); Potassium 3.3 MMOL/L (3.5-5.1)
[2018-08-22 04:51] LABS: Eosinophils 3 % (0-10); Hypochromasia 1+; Lymphocytes 11 % (20-55); Ovalocytes Slight; Platelet Estimate Decreased; Segmented Neutrophils 81 % (50-85); Total Cells Counted 100
[2018-08-22] MEDS: SODIUM CHLORIDE 0.9% 1,000 ML IV SCH ×2 (07:22→23:17)
[2018-08-22] MEDS: amLODIPine 10 MG TABLET PO SCH (08:38)
[2018-08-22] MEDS: PANTOPRAZOLE 40 MG TABLET PO SCH (08:38)
[2018-08-22] MEDS: OXYBUTYNIN XL 10 MG TABLET PO SCH ×3 (08:38→21:43)
[2018-08-22] MEDS: DOCUSATE SODIUM 100 MG CAPSULE PO SCH ×2 (08:38→21:44)
[2018-08-22] MEDS: ASCORBIC ACID 500 MG TABLET PO SCH (08:38)
[2018-08-22] MEDS: chlordiazePOXIDE 10 MG CAPSULE PO SCH ×3 (08:38→21:43)
[2018-08-22] MEDS: GABAPENTIN 400 MG CAPSULE PO SCH ×2 (08:38→21:41)
[2018-08-22] MEDS: tiZANidine 4 MG TABLET PO SCH ×3 (08:38→21:44)
[2018-08-22] MEDS: BACLOFEN 10 MG TABLET PO SCH ×3 (08:39→21:41)
[2018-08-22] MEDS: SULFAMETHOX/TRIMETHOPRIM 800-160 MG TABLET PO SCH (08:39)
[2018-08-22] MEDS: GENTAMICIN INJ 120 MG in PREMIX 1 EACH IV SCH (08:46)
[2018-08-22] MEDS: ONDANSETRON 4 MG/2 ML VIAL IV PRN (09:58)
[2018-08-22] MEDS: POTASSIUM CHLORIDE 20 MEQ TABLET PO SCH ×2 (09:58→12:22)
[2018-08-22] MEDS ORDERED: MAGNESIUM SULF RIDER 2 GM in PREMIX 1 EACH IV ONE (10:30)
[2018-08-22] MEDS ORDERED: BISACODYL 5 MG TABLET PO ONE (10:30)
[2018-08-22] MEDS ORDERED: SODIUM PHOSPHATE ENEMA 133 ML BOTTLE RECTAL ONE (15:00)
[2018-08-22] MEDS: SKIN HEALING OINT (AQUAPHOR) 50 GM TUBE TOP SCH (15:47)
[2018-08-22] MEDS: ENOXAPARIN 40 MG/0.4 ML SYRINGE SUBCUT SCH (21:44)
[2018-08-23] MEDS: cefTAZidime 2,000 MG in SYRINGE 1 EACH IV SCH ×3 (01:20→16:16)
[2018-08-23 06:45] LABS: Calcium 8.6 MG/DL (8.5-10.1); Osmolality,Calculated 278.3 MOS/KG (273-304); Potassium 3.2 MMOL/L (3.5-5.1)
[2018-08-23] MEDS: PANTOPRAZOLE 40 MG TABLET PO SCH (08:26)
[2018-08-23] MEDS: GABAPENTIN 400 MG CAPSULE PO SCH ×2 (08:26→21:46)
[2018-08-23] MEDS: chlordiazePOXIDE 10 MG CAPSULE PO SCH ×2 (08:26→16:15)
[2018-08-23] MEDS: OXYBUTYNIN XL 10 MG TABLET PO SCH ×2 (08:26→16:14)
[2018-08-23] MEDS: ASCORBIC ACID 500 MG TABLET PO SCH (08:26)
[2018-08-23] MEDS: amLODIPine 10 MG TABLET PO SCH (08:27)
[2018-08-23] MEDS: BACLOFEN 10 MG TABLET PO SCH ×2 (08:27→16:15)
[2018-08-23] MEDS: DOCUSATE SODIUM 100 MG CAPSULE PO SCH ×2 (08:27→21:47)
[2018-08-23] MEDS: tiZANidine 4 MG TABLET PO SCH ×2 (08:27→17:42)
[2018-08-23] MEDS: SKIN HEALING OINT (AQUAPHOR) 50 GM TUBE TOP SCH (08:29)
[2018-08-23] MEDS: ONDANSETRON 4 MG/2 ML VIAL IV PRN ×2 (08:31→21:47)
[2018-08-23] MEDS: GENTAMICIN INJ 100 MG in PREMIX 1 EACH IV SCH (08:35)
[2018-08-23] MEDS ORDERED: ZALEPLON 5 MG CAPSULE PO PRN (10:15)
[2018-08-23] MEDS: POTASSIUM CHLORIDE 20 MEQ TABLET PO SCH ×3 (10:46→15:52)
[2018-08-23] MEDS: SODIUM CHLORIDE 0.9% 1,000 ML IV SCH (12:58)
[2018-08-23] MEDS: ENOXAPARIN 40 MG/0.4 ML SYRINGE SUBCUT SCH (21:45)
[2018-08-24] MEDS: cefTAZidime 2,000 MG in SYRINGE 1 EACH IV SCH ×3 (01:10→17:02)
[2018-08-24] MEDS: BACLOFEN 10 MG TABLET PO SCH ×3 (01:17→17:02)
[2018-08-24] MEDS: OXYBUTYNIN XL 10 MG TABLET PO SCH ×3 (01:17→17:01)
[2018-08-24] MEDS: chlordiazePOXIDE 10 MG CAPSULE PO SCH ×3 (01:18→17:01)
[2018-08-24] MEDS: tiZANidine 4 MG TABLET PO SCH ×3 (01:18→17:02)
[2018-08-24] MEDS: SODIUM CHLORIDE 0.9% 1,000 ML IV SCH (01:40)
[2018-08-24] MEDS: GABAPENTIN 400 MG CAPSULE PO SCH ×2 (08:44→21:21)
[2018-08-24] MEDS: amLODIPine 10 MG TABLET PO SCH (08:44)
[2018-08-24] MEDS: ASCORBIC ACID 500 MG TABLET PO SCH (08:44)
[2018-08-24] MEDS: DOCUSATE SODIUM 100 MG CAPSULE PO SCH ×2 (08:44→21:21)
[2018-08-24] MEDS: PANTOPRAZOLE 40 MG TABLET PO SCH (08:44)
[2018-08-24] MEDS: SKIN HEALING OINT (AQUAPHOR) 50 GM TUBE TOP SCH (08:45)
[2018-08-24] MEDS: GENTAMICIN INJ 100 MG in PREMIX 1 EACH IV SCH (08:59)
[2018-08-24] MEDS: POTASSIUM CHLORIDE 20 MEQ TABLET PO SCH ×4 (10:11→16:44)
[2018-08-24] MEDS: ONDANSETRON 4 MG/2 ML VIAL IV PRN (10:15)
[2018-08-24] MEDS: SODIUM CHLOR 0.9% KCL 20 MEQ 20 MEQ/1,000 ML BAG IV SCH (10:19)
[2018-08-24] MEDS ORDERED: BACLOFEN 10 MG TABLET PO ONE (12:00)
[2018-08-24] MEDS ORDERED: OXYBUTYNIN XL 5 MG TABLET PO ONE (12:00)
[2018-08-24] MEDS: ENOXAPARIN 40 MG/0.4 ML SYRINGE SUBCUT SCH (21:21)
[2018-08-25] MEDS: OXYBUTYNIN XL 10 MG TABLET PO SCH ×4 (00:34→20:48)
[2018-08-25] MEDS: chlordiazePOXIDE 10 MG CAPSULE PO SCH ×3 (00:35→16:36)
[2018-08-25] MEDS: tiZANidine 4 MG TABLET PO SCH ×3 (00:35→16:36)
[2018-08-25] MEDS: BACLOFEN 10 MG TABLET PO SCH ×4 (00:35→20:48)
[2018-08-25] MEDS: SODIUM CHLOR 0.9% KCL 20 MEQ 20 MEQ/1,000 ML BAG IV SCH ×2 (01:49→16:33)
[2018-08-25] MEDS: cefTAZidime 2,000 MG in SYRINGE 1 EACH IV SCH (01:50)
[2018-08-25 05:22] LABS: Basophils % 0.6 % (0.0-0.8); Eosinophils # 0.2 10*3/uL (0.0-0.87); Eosinophils % 3.2 % (0.00-10.9); Hematocrit 43.7 VOL% (42.0-52.0); Hemoglobin 14.9 GM/DL (14.0-18.0); Immature Granulocytes % 0.2 %; Immature Granulocytes Absolute 0.01 #; Lymphocytes # 0.7 10*3/uL (1.4-4.0); Mean Corpuscular HGB Conc 34.1 GM/DL (32-36); Mean Corpuscular Hemoglobin 30 PG (27-34); Mean Corpuscular Volume 88.5 FL (87-102); Mean Platelet Volume 11.9 FL (9.6-12.0); Monocytes # 0.6 10*3/uL (0.11-0.8); Monocytes % 8.8 % (1.7-12.7); Neutrophils # 5.1 10*3/uL (1.4-7.4); Neutrophils % 77.2 % (38.7-73.9); Platelet Count 94 T/CUMM (130-400); Red Blood Count 4.94 MC/CUMM (3.8-5.5); Red Cell Distribution Width 13.9 % (9.3-17.3); White Blood Count 6.6 T/CUMM (4-12)
[2018-08-25 05:28] LABS: Calcium 8.3 MG/DL (8.5-10.1)
[2018-08-25 05:29] LABS: Osmolality,Calculated 277.4 MOS/KG (273-304); Potassium 4.9 MMOL/L (3.5-5.1)
[2018-08-25 05:43] LABS: Platelet Estimate Decreased
[2018-08-25] MEDS: SKIN HEALING OINT (AQUAPHOR) 50 GM TUBE TOP SCH (09:05)
[2018-08-25] MEDS: DOCUSATE SODIUM 100 MG CAPSULE PO SCH ×2 (09:06→20:48)
[2018-08-25] MEDS: amLODIPine 10 MG TABLET PO SCH (09:06)
[2018-08-25] MEDS: PANTOPRAZOLE 40 MG TABLET PO SCH (09:06)
[2018-08-25] MEDS: GABAPENTIN 400 MG CAPSULE PO SCH ×2 (09:06→20:49)
[2018-08-25] MEDS: ASCORBIC ACID 500 MG TABLET PO SCH (09:06)
[2018-08-25] MEDS: ONDANSETRON 4 MG/2 ML VIAL IV PRN ×3 (09:12→21:18)
[2018-08-25] MEDS: PIPERACILLIN/TAZOBACTAM 3,375 MG in SODIUM CHLORIDE 0.9% 100 ML IV SCH ×2 (09:15→16:36)
[2018-08-25] MEDS: KETOCONAZOLE 2% CREAM 30 GM TUBE TOP SCH (20:49)
[2018-08-25] MEDS: ENOXAPARIN 40 MG/0.4 ML SYRINGE SUBCUT SCH (20:49)
[2018-08-26] MEDS: tiZANidine 4 MG TABLET PO SCH ×4 (00:57→16:21)
[2018-08-26] MEDS: chlordiazePOXIDE 10 MG CAPSULE PO SCH ×3 (01:43→16:21)
[2018-08-26] MEDS: PIPERACILLIN/TAZOBACTAM 3,375 MG in SODIUM CHLORIDE 0.9% 100 ML IV SCH ×3 (01:47→16:21)
[2018-08-26] MEDS: OXYBUTYNIN XL 10 MG TABLET PO SCH ×3 (04:23→16:20)
[2018-08-26] MEDS: BACLOFEN 10 MG TABLET PO SCH ×3 (04:24→16:20)
[2018-08-26] MEDS: PANTOPRAZOLE 40 MG TABLET PO SCH (08:39)
[2018-08-26] MEDS: amLODIPine 10 MG TABLET PO SCH (08:39)
[2018-08-26] MEDS: ASCORBIC ACID 500 MG TABLET PO SCH (08:39)
[2018-08-26] MEDS: SKIN HEALING OINT (AQUAPHOR) 50 GM TUBE TOP SCH (08:40)
[2018-08-26] MEDS: DOCUSATE SODIUM 100 MG CAPSULE PO SCH ×2 (08:40→21:32)
[2018-08-26] MEDS: GABAPENTIN 400 MG CAPSULE PO SCH ×2 (08:40→21:31)
[2018-08-26] MEDS: KETOCONAZOLE 2% CREAM 30 GM TUBE TOP SCH ×2 (08:47→21:32)
[2018-08-26] MEDS: ONDANSETRON 4 MG/2 ML VIAL IV PRN (17:49)
[2018-08-26] MEDS: SODIUM CHLOR 0.9% KCL 20 MEQ 20 MEQ/1,000 ML BAG IV SCH ×2 (20:34)
[2018-08-26] MEDS: ENOXAPARIN 40 MG/0.4 ML SYRINGE SUBCUT SCH (21:32)
[2018-08-27] MEDS: PIPERACILLIN/TAZOBACTAM 3,375 MG in SODIUM CHLORIDE 0.9% 100 ML IV SCH ×3 (00:42→16:40)
[2018-08-27] MEDS: OXYBUTYNIN XL 10 MG TABLET PO SCH ×4 (00:56→17:47)
[2018-08-27] MEDS: chlordiazePOXIDE 10 MG CAPSULE PO SCH ×3 (00:57→16:40)
[2018-08-27] MEDS: BACLOFEN 10 MG TABLET PO SCH ×3 (00:58→16:40)
[2018-08-27 04:33] LABS: Basophils # 0.1 10*3/uL (0.0-0.2); Basophils % 0.8 % (0.0-0.8); Eosinophils # 0.2 10*3/uL (0.0-0.87); Eosinophils % 3.9 % (0.00-10.9); Hematocrit 47.4 VOL% (42.0-52.0); Hemoglobin 16.4 GM/DL (14.0-18.0); Immature Granulocytes % 1.6 %; Lymphocytes # 1.6 10*3/uL (1.4-4.0); Lymphocytes % 25.6 % (21.2-54.2); Mean Corpuscular HGB Conc 34.6 GM/DL (32-36); Mean Corpuscular Hemoglobin 31 PG (27-34); Mean Corpuscular Volume 89.9 FL (87-102); Mean Platelet Volume 12.1 FL (9.6-12.0); Monocytes # 0.6 10*3/uL (0.11-0.8); Neutrophils # 3.5 10*3/uL (1.4-7.4); Neutrophils % 58.1 % (38.7-73.9); Platelet Count 111 T/CUMM (130-400); Red Blood Count 5.27 MC/CUMM (3.8-5.5); Red Cell Distribution Width 13.7 % (9.3-17.3); White Blood Count 6.1 T/CUMM (4-12)
[2018-08-27 04:59] LABS: Calcium 8.7 MG/DL (8.5-10.1); Osmolality,Calculated 277.4 MOS/KG (273-304); Potassium 4.2 MMOL/L (3.5-5.1)
[2018-08-27 05:03] LABS: Hypochromasia Slight; Platelet Estimate Decreased
[2018-08-27] MEDS: SODIUM CHLOR 0.9% KCL 20 MEQ 20 MEQ/1,000 ML BAG IV SCH (10:06)
[2018-08-27] MEDS: GABAPENTIN 400 MG CAPSULE PO SCH ×2 (10:09→21:00)
[2018-08-27] MEDS: tiZANidine 4 MG TABLET PO SCH ×2 (10:09→16:40)
[2018-08-27] MEDS: ASCORBIC ACID 500 MG TABLET PO SCH (10:09)
[2018-08-27] MEDS: amLODIPine 10 MG TABLET PO SCH (10:10)
[2018-08-27] MEDS: DOCUSATE SODIUM 100 MG CAPSULE PO SCH ×2 (10:10→21:00)
[2018-08-27] MEDS: PANTOPRAZOLE 40 MG TABLET PO SCH (10:11)
[2018-08-27] MEDS: KETOCONAZOLE 2% CREAM 30 GM TUBE TOP SCH ×2 (10:11→21:01)
[2018-08-27] MEDS: SKIN HEALING OINT (AQUAPHOR) 50 GM TUBE TOP SCH (10:11)
[2018-08-27] MEDS: ENOXAPARIN 40 MG/0.4 ML SYRINGE SUBCUT SCH (21:00)
[2018-08-28] MEDS: PIPERACILLIN/TAZOBACTAM 3,375 MG in SODIUM CHLORIDE 0.9% 100 ML IV SCH ×3 (02:07→17:10)
[2018-08-28] MEDS: SODIUM CHLOR 0.9% KCL 20 MEQ 20 MEQ/1,000 ML BAG IV SCH ×2 (02:07→13:52)
[2018-08-28] MEDS: tiZANidine 4 MG TABLET PO SCH ×3 (02:09→17:10)
[2018-08-28] MEDS: chlordiazePOXIDE 10 MG CAPSULE PO SCH ×3 (02:09→17:10)
[2018-08-28] MEDS: BACLOFEN 10 MG TABLET PO SCH ×3 (02:09→17:10)
[2018-08-28] MEDS: OXYBUTYNIN XL 10 MG TABLET PO SCH ×3 (05:08→21:42)
[2018-08-28] MEDS: amLODIPine 10 MG TABLET PO SCH (09:51)
[2018-08-28] MEDS: GABAPENTIN 400 MG CAPSULE PO SCH ×2 (09:51→21:42)
[2018-08-28] MEDS: PANTOPRAZOLE 40 MG TABLET PO SCH (09:52)
[2018-08-28] MEDS: ASCORBIC ACID 500 MG TABLET PO SCH (09:52)
[2018-08-28] MEDS: DOCUSATE SODIUM 100 MG CAPSULE PO SCH ×2 (09:52→21:42)
[2018-08-28] MEDS: KETOCONAZOLE 2% CREAM 30 GM TUBE TOP SCH ×2 (09:53→21:44)
[2018-08-28] MEDS: SKIN HEALING OINT (AQUAPHOR) 50 GM TUBE TOP SCH (09:53)
[2018-08-28] MEDS: POLYETHYLENE GLYCOL POWDER 17 GM PACK PO SCH (09:53)
[2018-08-28] MEDS ORDERED: BISACODYL 10 MG SUPP RECTAL PRN (21:32)
[2018-08-28] MEDS: ENOXAPARIN 40 MG/0.4 ML SYRINGE SUBCUT SCH ×2 (21:42→21:46)
[2018-08-29] MEDS: chlordiazePOXIDE 10 MG CAPSULE PO SCH ×3 (00:18→17:58)
[2018-08-29] MEDS: PIPERACILLIN/TAZOBACTAM 3,375 MG in SODIUM CHLORIDE 0.9% 100 ML IV SCH ×3 (00:18→18:06)
[2018-08-29] MEDS: tiZANidine 4 MG TABLET PO SCH ×3 (00:18→17:58)
[2018-08-29] MEDS: BACLOFEN 10 MG TABLET PO SCH ×3 (00:18→17:58)
[2018-08-29] MEDS: SODIUM CHLOR 0.9% KCL 20 MEQ 20 MEQ/1,000 ML BAG IV SCH (03:10)
[2018-08-29] MEDS: OXYBUTYNIN XL 10 MG TABLET PO SCH ×3 (03:10→17:58)
[2018-08-29 04:43] LABS: Eosinophils # 0.2 10*3/uL (0.0-0.87); Eosinophils % 4.1 % (0.00-10.9); Hematocrit 45.1 VOL% (42.0-52.0); Hemoglobin 15.1 GM/DL (14.0-18.0); Immature Granulocytes % 0.2 %; Immature Granulocytes Absolute 0.01 #; Lymphocytes # 0.9 10*3/uL (1.4-4.0); Lymphocytes % 20.3 % (21.2-54.2); Mean Corpuscular HGB Conc 33.5 GM/DL (32-36); Mean Corpuscular Hemoglobin 30 PG (27-34); Mean Platelet Volume 11.5 FL (9.6-12.0); Monocytes # 0.4 10*3/uL (0.11-0.8); Monocytes % 9.1 % (1.7-12.7); Neutrophils # 2.7 10*3/uL (1.4-7.4); Neutrophils % 65.3 % (38.7-73.9); Platelet Count 113 T/CUMM (130-400); Red Blood Count 5.01 MC/CUMM (3.8-5.5); Red Cell Distribution Width 13.7 % (9.3-17.3); White Blood Count 4.2 T/CUMM (4-12)
[2018-08-29 04:51] LABS: PT Patient Result 10.5 SECS; Partial Thromboplastin Time 28.2 SECS (0-40)
[2018-08-29 05:00] LABS: Calcium 8.9 MG/DL (8.5-10.1); Potassium 3.8 MMOL/L (3.5-5.1)
[2018-08-29] MEDS ORDERED: cefTRIAXone 1,000 MG in SYRINGE 1 EACH IV ONE (07:00)
[2018-08-29] MEDS: amLODIPine 10 MG TABLET PO SCH (09:12)
[2018-08-29] MEDS: SKIN HEALING OINT (AQUAPHOR) 50 GM TUBE TOP SCH (11:18)
[2018-08-29] MEDS: DOCUSATE SODIUM 100 MG CAPSULE PO SCH ×2 (11:23→21:21)
[2018-08-29] MEDS: POLYETHYLENE GLYCOL POWDER 17 GM PACK PO SCH (11:23)
[2018-08-29] MEDS: GABAPENTIN 400 MG CAPSULE PO SCH ×2 (11:24→21:15)
[2018-08-29] MEDS: ASCORBIC ACID 500 MG TABLET PO SCH (11:25)
[2018-08-29] MEDS: PANTOPRAZOLE 40 MG TABLET PO SCH (11:25)
[2018-08-29] MEDS: KETOCONAZOLE 2% CREAM 30 GM TUBE TOP SCH ×2 (11:34→21:22)
[2018-08-29] MEDS ORDERED: NEOMYCIN/POLYMYXIN IRRIG SOLN 1 ML AMP BLADDERIRR ONE (12:58)
[2018-08-29] MEDS ORDERED: SEVOFLURANE 1 UNIT/15 MINUTE INH ONE (16:11)
[2018-08-29] MEDS ORDERED: PROPOFOL 200 MG/20 ML VIAL IV ONE (16:11)
[2018-08-29] MEDS ORDERED: GLYCOPYRROLATE 0.4 MG/2 ML VIAL ONE (16:12)
[2018-08-29] MEDS ORDERED: NEOSTIGMINE 10 MG/10 ML VIAL ONE (16:12)
[2018-08-29] MEDS ORDERED: fentaNYL 100 MCG/2 ML VIAL ONE (16:12)
[2018-08-29] MEDS ORDERED: MIDAZOLAM 2 MG/2 ML VIAL ONE (16:12)
[2018-08-29] MEDS ORDERED: ONDANSETRON 4 MG/2 ML VIAL ONE (16:12)
[2018-08-29] MEDS: ENOXAPARIN 40 MG/0.4 ML SYRINGE SUBCUT SCH (21:22)
[2018-08-29] MEDS: MORPHINE 4 MG/1 ML VIAL IV SCH (21:51)
[2018-08-29] MEDS ORDERED: MORPHINE 4 MG/1 ML VIAL IV ONE (22:00)
[2018-08-30] MEDS: BACLOFEN 10 MG TABLET PO SCH ×3 (01:02→16:41)
[2018-08-30] MEDS: chlordiazePOXIDE 10 MG CAPSULE PO SCH ×2 (01:02→08:21)
[2018-08-30] MEDS: tiZANidine 4 MG TABLET PO SCH ×3 (01:02→16:41)
[2018-08-30] MEDS: PIPERACILLIN/TAZOBACTAM 3,375 MG in SODIUM CHLORIDE 0.9% 100 ML IV SCH ×3 (01:03→16:41)
[2018-08-30] MEDS: OXYBUTYNIN XL 10 MG TABLET PO SCH ×3 (02:21→17:57)
[2018-08-30] MEDS: MORPHINE 4 MG/1 ML VIAL IV SCH (02:22)
[2018-08-30] MEDS: SODIUM CHLOR 0.9% KCL 20 MEQ 20 MEQ/1,000 ML BAG IV SCH (04:28)
[2018-08-30] MEDS: ASCORBIC ACID 500 MG TABLET PO SCH (08:20)
[2018-08-30] MEDS: DOCUSATE SODIUM 100 MG CAPSULE PO SCH ×2 (08:21→20:36)
[2018-08-30] MEDS: GABAPENTIN 400 MG CAPSULE PO SCH ×2 (08:21→20:36)
[2018-08-30] MEDS: PANTOPRAZOLE 40 MG TABLET PO SCH (08:21)
[2018-08-30] MEDS: amLODIPine 10 MG TABLET PO SCH (08:21)
[2018-08-30] MEDS: SKIN HEALING OINT (AQUAPHOR) 50 GM TUBE TOP SCH (08:22)
[2018-08-30] MEDS: KETOCONAZOLE 2% CREAM 30 GM TUBE TOP SCH ×2 (08:22→20:44)
[2018-08-30] MEDS: POLYETHYLENE GLYCOL POWDER 17 GM PACK PO SCH (08:23)
[2018-08-30] MEDS: ONDANSETRON 4 MG/2 ML VIAL IV PRN (16:47)
[2018-08-30] MEDS: ENOXAPARIN 40 MG/0.4 ML SYRINGE SUBCUT SCH (20:44)
[2018-08-31] MEDS: BACLOFEN 10 MG TABLET PO SCH ×2 (00:16→09:15)
[2018-08-31] MEDS: tiZANidine 4 MG TABLET PO SCH ×2 (00:16→09:15)
[2018-08-31] MEDS: OXYBUTYNIN XL 10 MG TABLET PO SCH ×2 (00:16→09:15)
[2018-08-31] MEDS: PIPERACILLIN/TAZOBACTAM 3,375 MG in SODIUM CHLORIDE 0.9% 100 ML IV SCH ×2 (00:18→09:12)
[2018-08-31] MEDS: SODIUM CHLOR 0.9% KCL 20 MEQ 20 MEQ/1,000 ML BAG IV SCH ×2 (06:29→09:18)
[2018-08-31] MEDS: GABAPENTIN 400 MG CAPSULE PO SCH (09:15)
[2018-08-31] MEDS: ASCORBIC ACID 500 MG TABLET PO SCH (09:15)
[2018-08-31] MEDS: DOCUSATE SODIUM 100 MG CAPSULE PO SCH (09:15)
[2018-08-31] MEDS: amLODIPine 10 MG TABLET PO SCH (09:15)
[2018-08-31] MEDS: KETOCONAZOLE 2% CREAM 30 GM TUBE TOP SCH (09:15)
[2018-08-31] MEDS: PANTOPRAZOLE 40 MG TABLET PO SCH (09:15)
[2018-08-31] MEDS: SKIN HEALING OINT (AQUAPHOR) 50 GM TUBE TOP SCH (09:18)
[2018-08-31 11:41] VITALS: BP 133/77
[2018-08-31] MEDS: POLYETHYLENE GLYCOL POWDER 17 GM PACK PO SCH (12:55)
== END 2018-08-31 13:50 | disposition home health service (06) | DRG 698 ==
LOC: EDUNIT# → N.ED 15:45 → SUATTDRO 19:10 → N.EDINP 19:10 → N.2E 19:57
PROVIDERS: ADMIT Internal Medicine; ATTEND Internal Medicine